=== PATIENT | male | born 1985 | race Caucasian/White ===

== ENCOUNTER 2022-01-06 22:10 | Emergency (ER) | payer SELFPAY ==
[~2022-01-06] VITALS: Ht 175.3 cm; Wt 110.0 kg
[2022-01-06 22:16] VITALS: BP 154/105
== END 2022-01-06 22:59 ==
LOC: ER 22:10
DX: Z04.1 Encounter for examination and observation following transport accident (principal); Z72.89 Other problems related to lifestyle
CPT/HCPCS: 99283